=== PATIENT | female | born 1985 | race Caucasian/White ===

== ENCOUNTER 2021-05-14 21:46 | Emergency (ER) | payer OTHER ==
[2021-05-15] MEDS ORDERED: DOXYCYCLINE MO100 MG PO (00:49)
[2021-05-15] MEDS ORDERED: DICLOFENAC SODI75 MG PO (00:49)
== END 2021-05-15 01:00 | disposition home or self-care (01) ==
LOC: FER 21:46
DX: L02.415 Cutaneous abscess of right lower limb (principal); F17.200 Nicotine dependence, unspecified, uncomplicated
CPT/HCPCS: 96372; J1885